=== PATIENT | male | born 1960 ===

== ENCOUNTER 2019-02-08 09:21 | Day surgery (SDC) | payer OTHER ==
[2019-02-08] MEDS ORDERED: Belladonna-Phenobarbital PO STA (11:30)
[2019-02-08] MEDS ORDERED: Propofol 10 mg/ml Inj (20 ML) ONE (11:30)
--- NOTE | 2019-02-08 11:30 | CP.SDSHP ---
Same Day Surgery H & P - History Proposed Procedure: colonscopy Pre-Op Diagnosis: see notes - Previous Medical/Surgical History Cardiac: Hypertension Endocrine/Metabolic: Other Neuro: Backaches - Allergies Allergies: Allergies No Known Allergies Allergy (Verified 02/08/19 09:44) - Physical Exam General Appearance: n Vital Signs: Vital Signs 02/08/19 09:55 Temperature 97.5 F L Pulse Rate 79 Respiratory 20 Rate Blood Pressure 149/78 O2 Sat by Pulse 99 Oximetry Mental Status: Alert & Oriented x3 Neuro: WNL Heart: Other Lungs: WNL GI: Other - {Optional Preform as Required} Breast: WNL Abdomen: Other Rectal: Other Integument: WNL : WNL Ortho: Other ENT: WNL - Impression Pt. Evaluated Today:Candidate for Anesthesia & Procedure: Yes - Date & Time Time: 11:29 Short Stay Discharge - Short Stay Discharge Admitting Diagnosis/Reason for Visit: SCREENING Disposition: HOME/ ROUTINE Referrals: Bhavesh Natarajan MD [Primary Care Provider] -
[2019-02-08 11:33] VITALS: RESP 20; TEMP 97.5; O2SAT 99; BMI 22.8
[2019-02-08 12:50] VITALS: PULSE 79
[2019-02-08 12:52] VITALS: BP 125/64
== END 2019-02-08 12:53 | disposition home or self-care (01) ==
LOC: C.ENDO 09:21
PROVIDERS: ATTEND Specialist
DX: K62.1 Rectal polyp (principal); K64.8 Other hemorrhoids; Z12.11 Encounter for screening for malignant neoplasm of colon; K52.9 Noninfective gastroenteritis and colitis, unspecified; I10 Essential (primary) hypertension
CPT/HCPCS: 45380; 88305; J2704

== ENCOUNTER 2019-02-15 06:36 | Day surgery (SDC) | payer OTHER ==
[2019-02-15 06:56] VITALS: BMI 22.9
--- NOTE | 2019-02-15 08:47 | CP.SDSHP ---
Same Day Surgery H & P - History Proposed Procedure: EGD Pre-Op Diagnosis: SEE NOTES - Previous Medical/Surgical History Cardiac: Hypertension Endocrine/Metabolic: Other Misc: Other Pain: 4.Moderate Pain - Allergies Allergies: Allergies No Known Allergies Allergy (Verified 02/08/19 09:44) - Physical Exam General Appearance: N Vital Signs: Vital Signs 02/15/19 06:59 Temperature 98.2 F Pulse Rate 71 Respiratory 16 Rate Blood Pressure 152/78 H O2 Sat by Pulse 99 Oximetry Mental Status: Alert & Oriented x3 Neuro: WNL Heart: Other Lungs: WNL GI: Other - {Optional Preform as Required} Breast: WNL Abdomen: Other Rectal: Other Integument: WNL : WNL Ortho: Other ENT: WNL - Impression Pt. Evaluated Today:Candidate for Anesthesia & Procedure: Yes - Date & Time Time: 08:46 Short Stay Discharge - Short Stay Discharge Admitting Diagnosis/Reason for Visit: DYSPEPSIA Disposition: HOME/ ROUTINE Referrals: Bhavesh Natarajan MD [Primary Care Provider] -
[2019-02-15] MEDS ORDERED: Midazolam 2 MG/2 ML VIAL ONE (08:50)
[2019-02-15] MEDS ORDERED: Propofol 10 mg/ml Inj (20 ML) ONE (08:50)
[2019-02-15] MEDS ORDERED: Lidocaine Hydrochloride 5 ML INJ ONE (08:54)
[2019-02-15] MEDS ORDERED: Belladonna-Phenobarbital PO ONE (09:15)
[2019-02-15 09:18] VITALS: TEMP 97
[2019-02-15] MEDS ORDERED: Pantoprazole 40 mg EC Tab PO ONE (09:30)
[2019-02-15 10:20] VITALS: BP 139/81; PULSE 78; RESP 16; O2SAT 99
== END 2019-02-15 10:10 | disposition home or self-care (01) ==
LOC: C.ENDO 06:36
PROVIDERS: ATTEND Specialist
DX: K30 Functional dyspepsia (principal); K44.9 Diaphragmatic hernia without obstruction or gangrene; K31.9 Disease of stomach and duodenum, unspecified
CPT/HCPCS: 43239; 88305; 88342; J2250; J2704